=== PATIENT | male | born 1990 | race Caucasian/White ===

== ENCOUNTER 2016-09-10 08:06 | Emergency (ER) | payer OTHER ==
[2016-09-10 05:40] LABS: INFLUENZA A NEG (NEG); INFLUENZA B NEG (NEG)
[~2016-09-10 08:06] MED LIST: AMOXICILLIN500 M1 PO; BACTRIM DS TABL1 TA2 PO; CLINDAMYCIN HCL1 GM PO; KEFLEX PO; KEFLEX500 M1 PO; LORTAB 10-5001 EACH PO; MOTRIN400 MG PO
== END 2016-09-10 08:15 | disposition home or self-care (01) ==
LOC: CED 08:06
PROVIDERS: Emergency Medicine
DX: J11.1 Influenza due to unidentified influenza virus with other respiratory manifestations (principal)
CPT/HCPCS: 87651; 87804; 96372; 99283; J1100